=== PATIENT | female | born 1960 | race Caucasian/White ===

== ENCOUNTER 2017-04-01 16:27 | Emergency (ER) | payer BC ==
[2017-04-01 16:51] VITALS: BP 134/68
--- NOTE | 2017-04-01 17:16 | RAD ---
Indication: Left index finger injury. 3 views of left index finger demonstrates degenerative changes of the distal interphalangeal joint. No fracture is identified. IMPRESSION: Degenerative changes of the distal left interphalangeal joint.
--- NOTE | 2017-04-01 17:37 | UC ---
Rosa Vasquez Emily, scribed for Nedla Ford MD on 04/01/17 at 1724 . Upper Extremity HPI - HPI Summary HPI Summary: This patient is a 57 year old F presenting to urgent care accompanied by with a chief complaint of pain in L index finger that began last night. The patient rates the pain 7/10 in severity. Symptoms aggravated by movement of finger. Symptoms alleviated by nothing. Patient reports swelling in L index finger when she woke this morning. No paresthesia. No weakness. Pt states her mother has rheumatoid arthritis and she is concerned she has the same. Pt denies fevers, chills. no mild erythema at the joint, no red streaking. No trauma Pt is RHD. no wrist, elbow pain. Pt states has arthritis in several joints - take meloxicam. .Patient denies history of gout. Pt called pcp - unable to get appt so came here for eval. Pt is not immunocompromised. Patient's medication reviewed this visit. - History of Current Complaint Chief Complaint: UCUpperExtremity Stated Complaint: FINGER COMPLAINT Time Seen by Provider: 04/01/17 17:11 Hx Obtained From: Patient Onset/Duration: Sudden Onset, Lasting Days, Still Present Severity Initially: Moderate Severity Currently: Moderate Pain Intensity: 7 Pain Scale Used: 0-10 Numeric Location Of Pain: Is Discrete @ - index, left dip Aggravating Factor(s): Movement, Other - Movement of finger Alleviating Factor(s): Nothing Associated Signs And Symptoms: Positive: Swelling - Allergies/Home Medications Allergies/Adverse Reactions: Allergies Allergy/AdvReac Type Severity Reaction Status Date / Time No Known Allergies Allergy Verified 04/01/17 16:51 PMH/Surg Hx/FS Hx/Imm Hx - Additional Past Medical History Additional PMH: Arthritis Previously Healthy: No GI/ History: Other Other GI/ History: hepatitis C Other History Of: Hepatitis C - Surgical History Surgical History: Yes Surgery Procedure, Year, and Place: RIGHT TOTAL HIP OCTOBER 2012; BREAST IMPLANT;BIOPSIES BREAST AND CERVIX, CERVICAL FUSION. 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 Negative wrist pain Neurological: Other - Negative numbness/tingling in finger All Other Systems Reviewed And Are Negative: Yes Physical Exam Triage Information Reviewed: Yes Appearance: Well-Appearing, No Pain Distress, Well-Nourished Vital Signs: Initial Vital Signs Temp 98.2 F 04/01/17 16:48 Pulse 73 04/01/17 16:48 Resp 12 04/01/17 16:48 BP 134/68 04/01/17 16:48 Pulse Ox 98 04/01/17 16:48 Vital Signs Reviewed: Yes Eyes: Positive: Conjunctiva Clear ENT: Positive: Hearing grossly normal Neck: Positive: Supple Respiratory: Positive: No respiratory distress, No accessory muscle use Cardiovascular: Positive: Other: - 2+ radial 2+ ulnar CBT < 2 sec Musculoskeletal: Positive: Other: - left dIP. Pt with mild focal edema dorsal aspect across joint. mild erythema. No warmth, No extension to cuticle or nail bed. no fluctuance. + flex/ext MCP, DIP, PIP - discomfort with full flexion DIP of index, left No pain proximal to DIP, Metacarpals, carpals + flex.ext wrist, elbow Neurological: Positive: Alert, Muscle Tone Normal, Other: - + gross sensation throughout finger Psychological Exam: Normal Psychological: Positive: Normal Response To Family Skin: Positive: Other - + erythema no warmth left index DIP dorsum Diagnostics - Radiology Finger Radiology Interpretation Completed By: Radiologist - Finger XR read by radiologist reveals degenerative changes of the distal left interphalangeal joint. ED physician has reviewed this radiology report and agrees. Upper Extremity Course/Dx - Course Course Of Treatment: Pt presents with discomfort distal DIP left index since this am. mild erythema. No warmth. no trauma. + ROM with slight discomfort. VSS. reviewed with pt - differential wide including RF, arthritis, gout. low suspicion for infection but d/w pt s/s and surveillance. will check labs. splint. pt has meloxicam. add apap. referral to rheum and pcp. return precautions discussed. PT comfortable and in agreement with plan - Differential Dx/Diagnosis Provider Diagnoses: joint swelling left index Discharge - Discharge Plan Condition: Stable Disposition: HOME Patient Education Materials: Swollen Joint (ED) Referrals: Hubert Grajeda MD [Primary Care Provider] - Brandt Oliva MD [Medical Doctor] - 1 Day Additional Instructions: - wear splint as much as possible for comfort and support - continue to take meloxicam as previously prescribed. okay to take tylenol every 6 hours as needed - You had lab work drawn today - these results may take 3-4days to come back. you may get these results at your follow-up appointment - Monitor your finger for signs of infection - reddness, red streaking, fever, chills, increased swelling. If you have concerns, it is recommended you follow0- up here, your doctor or the emergency department - you have been given a referral for a boardmarker- okay to call to schedule an appointment The documentation as recorded by the Rosa vázquez Emily accurately reflects the service I personally performed and the decisions made by me, Nelda Ford MD.
[2017-04-02 10:57] LABS: Hematocrit 39 % (35-47); Hemoglobin 13.1 g/dl (12.0-16.0); Mean Corpuscular HGB Conc 34 g/dl (31-36); Mean Corpuscular Hemoglobin 34 pg (27-31); Mean Corpuscular Volume 101 fL (80-97); Mean Platelet Volume 9 um3 (7.4-10.4); Red Blood Count 3.88 10^6/ul (4.0-5.4); Red Cell Distribution Width 13 % (10.5-15); White Blood Count 6.1 10^3/ul (3.5-10.8)
[2017-04-02 11:02] LABS: C Reactive Protein 13.97 mg/L (< 5.00); Uric Acid 5.3 mg/dL (2.3-6.6)
[2017-04-02 11:50] LABS: Erythrocyte Sed Rate 12 mm/Hr (0-30)
--- NOTE | 2017-04-02 15:53 | UC ---
Progress - Progress Note Progress Note: NO ACUTE CHANGES.
--- NOTE | 2017-04-03 17:43 | ED ---
Progress - Progress Note Progress Note: NO ACUTE CHANGES. NO ACUTE CHANGES RF Course/Dx - Course Course Of Treatment: Pt presents with discomfort distal DIP left index since this am. mild erythema. No warmth. no trauma. + ROM with slight discomfort. VSS. reviewed with pt - differential wide including RF, arthritis, gout. low suspicion for infection but d/w pt s/s and surveillance. will check labs. splint. pt has meloxicam. add apap. referral to rheum and pcp. return precautions discussed. PT comfortable and in agreement with plan - Diagnoses Provider Diagnoses: Finger pain
== END 2017-04-01 17:41 | disposition home or self-care (01) ==
LOC: UCEAST 16:27
DX: M25.442 Effusion, left hand (principal)
CPT/HCPCS: 36415; 73140; 84550; 85025; 85652; 86140; 86431; 99211; G0463

== ENCOUNTER 2017-09-13 00:13 | Emergency (ER) | payer BC ==
[2017-09-13] MEDS ORDERED: Aspirin 81 mg CHEW TAB* 81 MG TAB.CHEW PO ONE (00:47)
[2017-09-13] MEDS ORDERED: Nitroglycerin TAB 0.4 MG* 0.4 MG TAB SL ONE (00:59)
[2017-09-13 01:14] LABS: ABS Basophils 0.1 10^3/ul (0-0.2); ABS Eosinophils 0.2 10^3/ul (0-0.6); ABS Lymphocytes 1.4 10^3/ul (1.0-4.8); ABS Monocytes 0.5 10^3/ul (0-0.8); ABS Neutrophils 3.7 10^3/ul (1.5-7.7); ABS Nucleated RBC 0 10^3/ul; Eosinophil % 2.7 % (0-6); Hematocrit 37 % (35-47); Hemoglobin 12.7 g/dl (12.0-16.0); Lymphocyte % 24.3 % (25-47); Mean Corpuscular HGB Conc 35 g/dl (31-36); Mean Corpuscular Hemoglobin 34 pg (27-31); Mean Corpuscular Volume 98 fL (80-97); Mean Platelet Volume 7.2 um3 (7.4-10.4); Nucleated Red Blood Cells % 0.1; Platelet Count 144 10^3/ul (150-450); Red Blood Count 3.75 10^6/ul (4.0-5.4); Red Cell Distribution Width 13 % (10.5-15); White Blood Count 5.8 10^3/ul (3.5-10.8)
--- OUTSIDE RECORDS SUMMARY | 2017-09-13 01:14 | XMS REPORT ---
:1960 External Reference #:[id number] Author Organization [facility] Address [address] [address] Phone [phone] Care Team Providers Name Role Phone Hubert Grajeda MD Primary Care Physician Unavailable Payers Type Date Identification Numbers Payment Provider Subscriber Commercial Effective: Policy Number: [employer] Arnulfo Busby 2012 [id number] PayID: [id number] [address] [address] [place] [address] Problems Date Description Provider Status Onset: 08/01/2016 Iliotibial band friction syndrome Reagan Goldsmith M.D. Active Onset: 08/01/2016 Trochanteric bursitis Reagan Goldsmith M.D. Active Onset: 07/14/2013 Carpal tunnel syndrome Cesar Carrillo M.D. 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 twice a day for 3 days, then as needed for pain from gout attack for no more than 4 days Voltaren 07/05/ Active Gel 1% 200uni apply 2 M19.042 2017 ts grams Pj, twice M.D. daily as needed for pain to the hands Ambien / Active Tablets 10mg 14tabs 1 po Unknown 0000 tablet at bedtime prn Valacyclovir HCL / Active Tablets 500mg 1 by Unknown 0000 mouth every day x 5 days Aspirin / Active Tablets DR 81mg 1 by Unknown 0000 mouth every day Myrbetriq / Active Tablets ER 50mg 1 by Unknown 0000 24HR mouth every day Oxycodone HCL 08/01/ Hx Capsules 5mg 30caps one to Reagan 2016 - two Rupal, 09/16/ tablets M.D. 2016 every 6 hours as needed for pain Motrin 11/11/ Hx Tablet 600mg 90tabs Take 1 Dirk 2012 - Tablet Rosalio, 07/14/ By Mouth M.D. 2013 4 Times A Day as Needed For Right Hip And Knee Pain Ibuprofen 09/10/ Hx Tablets 600mg 90tabs 1 po qid Dirk 2012 - prn pain Rosalio, 04/06/ right M.D. 2013 hip and knee Meloxicam / Hx Tablets 15mg 30tabs 1 by Reagan 0000 - mouth Rupal, 07/05/ every M.D. 2017 day Vesicare / Hx Tablets 10mg 90tabs 1 po qd Unknown 0000 - 2017 Cyclobenzaprine / Hx Tablets 5mg 30tabs take one Unknown HCL 0000 - at 04/06/ bedtime 2013 as needed Climara Pro / Hx Patches 0.045-0.01 Unknown 0000 - Weekly 5mg/Day 2013 Hydrocodone/Aceta / Hx Tablets 5-325mg 60tabs 1-2 po Unknown minophen 0000 - qid prn 04/06/ pain 2014 Lidocaine / Hx Patches 5% apply Unknown 0000 - patch up to 12 2017 hours once a day. Gabapentin / Hx Capsules 300mg 1 by Unknown 0000 - mouth three 2018 times a day, 2 at hs prn Vital Signs Date Vital Result Comment 08/21/2017 Height 80 inches 6'8" Heart Rate 75 /min BP Systolic Sitting 123 mmHg BP Diastolic Sitting 76 mmHg Respiratory Rate 14 /min Pain Level 7 07/05/2017 Height 80 inches 6'8" Weight 231.50 lb Heart Rate 73 /min BP Systolic Sitting 120 mmHg BP Diastolic Sitting 78 mmHg Pain Level 5 O2 % BldC Oximetry 97 % BMI (Body Mass Index) 25.4 kg/m2 10/10/2016 Height 70 inches 5'10" Weight 235.00 lb BP Systolic 117 mmHg BP Diastolic 80 mmHg Respiratory Rate 18 /min Body Temperature 97.7 F BMI (Body Mass Index) 33.7 kg/m2 08/01/2016 Height 70 inches 5'10" Weight 235.00 lb Heart Rate 59 /min BP Systolic Sitting 116 mmHg BP Diastolic Sitting 63 mmHg Respiratory Rate 14 /min Body Temperature 98.1 F Pain Level 6 BMI (Body Mass Index) 33.7 kg/m2 06/01/2014 Height 70 inches 5'10" Weight 250.00 lb Heart Rate 78 /min BMI (Body Mass Index) 35.9 kg/m2 04/07/2014 Height 70 inches 5'10" Heart Rate 77 /min BP Systolic 130 mmHg BP Diastolic 80 mmHg 07/14/2013 Height 70 inches 5'10" Weight 250.00 lb BP Systolic 132 mmHg BP Diastolic 82 mmHg Pain Level 4 numbness right arm BMI (Body Mass Index) 35.9 kg/m2 04/08/2013 Height 70 inches 5'10" Weight 230.00 lb Heart Rate 78 /min BP Systolic 109 mmHg BP Diastolic 71 mmHg BMI (Body Mass Index) 33.0 kg/m2 Results Test Date Test Result H/L Range Note Laboratory test finding 07/05/2017 C Reactive Protein 15.95 mg/L High &lt ; 5.00 1 Iron & Iron Binding 07/05/2017 Iron 147 g/dL 50-212 Capacity Unsaturated Iron Binding 239 g/dL Total Iron Binding Capacity 386 g/dL 250-450 % Iron Saturation 38 % 15-55 Laboratory test finding 07/05/2017 Ferritin 351.2 ng/mL High 11-307 Hla B27 07/05/2017 Hla B27 Negative 2 Hla B27 Interp See Comment 3 1 Acute inflammation: >10.00 2 REFERENCE VALUE Not Applicable 3 RESULT: HLA-B27 antigen was not detected. ADDITIONAL INFORMATION Method: Flow Cytometry Performing Laboratory CLIA# [id number] Test Performed by: [address] [address] Procedures Date CPT Code Description Status 07/21/2012 94259 Rad Exam; Foot Comp Completed Encounters Type Date Location Provider CPT E/M Dx Office Visit 07/05/2017 [facility] Brandt [place], [address] M19.042 12:00p Of Rob Bashir R79.82 R94.5 M16.9 Office Visit 11/01/2016 8:00a [facility] [place] [address] D22.5 D22.39 L91.8 D23.71 D23.72 L82.1 Office Visit 10/10/2016 11:30a [facility] Golds[facility] 46533 M70.62 C.Sherry Bashir M70.61 Office Visit 08/01/2016 1:30p [facility] 53218 M70.62 C.Sherry Bashir M76.32 Office Visit 06/01/2014 2:30p [facility] 16117 724.3 Elida Bashir Office Visit 04/07/2014 1:00p [facility] 76421 715.16 CEbenezer Bashir Office Visit 07/14/2013 2:40p [facility] Cesar Carrillo, [address]70 354.0 Of Rob Bashir Office Visit 04/08/2013 9:15a [facility] H[facility]to Santamaria M.D. 79704 718.05 C.Sherry 726.5 Office Visit 09/10/2012 3:15p [facility] Humberto Santamaria M.D. 25326 715.95 C.M.AGuy Office Visit 07/21/2012 8:45a [facility] Farrukh Anders 93649 735.2 C.Sherry Bashir 715.97 Plan of Care Future Appointment(s):09/24/2017 4:00 pm - Brandt Oliva M.D. at [facility]08/21/2017 - Brandt Oliva M.D.R79.82 Elevated C-reactive protein (CRP)R94.5 Abnormal results of liver function lhwnfhhW12.042 Primary osteoarthritis, left handM06.4 Inflammatory mectxqdgshnxrqhS76.572 Pain in left ankle and joints of left footNew Medication:Colchicine 0.6 mgFollow up:Follow up in 3 to 4 weeks or sooner if needed
[2017-09-13 01:35] LABS: EGFR Non-African American 61.1 (>60)
[2017-09-13] MEDS ORDERED: ALPRAZolam TAB* 0.25 MG PO ONE (02:03)
[2017-09-13 03:32] VITALS: BP 113/59
--- NOTE | 2017-09-13 04:20 | ED ---
Kyle Vasquez Angela, scribed for Jayy Brooks MD on 09/13/17 at 0055 . HPI Chest Pain - HPI Summary HPI Summary: This pt is a 57 y/[facility] the last couple of days. Pt reports she has had tightness on the left side of her chest with pinpoint tenderness on the mid sternum. Today, pt states pt began to feel "panicky" and jittery at approximately 22:00, and felt like she couldn't take a deep breath. Pt notes her chest pain is pleuritic. Her pain is aggravated with deep breaths. She additionally states lightheadedness, jittery, pain and tingling on tip of her toes. Pt reports that for the past few night she has been waking up from sleep with a throbbing headache located in the occipital area. 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 She is scheduled to see Dr. Meehan on September 19. Pt reports increased stress due to recent diagnosis of hemochromatosis. Pt takes Ambien, baby aspirin. - History of Current Complaint Chief Complaint: EDChestPainROMI Time Seen by Provider: 09/13/17 00:41 Hx Obtained From: Patient Onset/Duration: Started Days Ago, Still Present Timing: Lasting Days Current Severity: Severe Pain Intensity: 10 Pain Scale Used: 0-10 Numeric Chest Pain Location: Left Anterior Chest Pain Radiates: No Character: Tightness Aggravating Factor(s): Deep Breaths Alleviating Factor(s): Nothing Associated Signs and Symptoms: Positive: Chest Pain, Headaches, Lightheadedness , Other: - POS: jittery - Allergy/Home Medications Allergies/Adverse Reactions: Allergies Allergy/AdvReac Type Severity Reaction Status Date / Time No Known Allergies Allergy Verified 09/13/17 00:29 PMH/Surg Hx/FS Hx/Imm Hx Endocrine/Hematology History: Denies: Hx Diabetes, Hx Systemic Lupus Erythematosus Cardiovascular History: Reports: Hx Hypertension - RESOLVED Denies: Hx Congestive Heart Failure, Hx Pacemaker/ICD Respiratory History: Reports: Hx Asthma History: Denies: Hx Dialysis, Hx Renal Disease Musculoskeletal History: Reports: Hx Arthritis - osteoarthritis Denies: Hx Rheumatoid Arthritis Sensory History: Denies: Hx Hearing Aid Psychiatric History: Reports: Other Psychiatric Issues/Disorders - hx of iv drug addiction; clean since 2007 Denies: Hx Panic Disorder - Cancer History Hx Chemotherapy: No Hx Radiation Therapy: No - Surgical History Surgery Procedure, Year, and Place: RIGHT TOTAL HIP OCTOBER 2012; BREAST IMPLANT;BIOPSIES BREAST AND CERVIX, CERVICAL FUSION. - Immunization History Date of Tetanus Vaccine: utd Date of Influenza Vaccine: utd Infectious Disease History: Yes Infectious Disease History: Reports: Hx Hepatitis - hx, Hx of Known/Suspected MRSA - 2004 tailbone Denies: Hx Clostridium Difficile, Hx Human Immunodeficiency Virus (HIV), Hx Shingles, Hx Tuberculosis, Hx Known/Suspected VRE, Hx Known/Suspected VRSA, History Other Infectious Disease, Traveled Outside the [place] in Last 30 Days - Family History Family History: Rheumatoid Arthritis - Social History Alcohol Use: Occasionally Substance Use Type: Reports: None Substance Use Comment - Amount & Last Used: 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; clean since 2004) Smoking Status (MU): Never Smoked Tobacco Have You Smoked in the Last Year: No Review of Systems Negative: Fever Positive: Chest Pain Musculoskeletal: Other - pain at tips of toes Neurological: Other - POS: lightheadedness, jittery Positive: Headache, Paresthesia - on tips of toes All Other Systems Reviewed And Are Negative: Yes Physical Exam - Summary Physical Exam Summary: Appearance: Well-appearing, no distress, Well-nourished Skin: Warm, color reflects adequate perfusion Head: Normal Head/Face inspection Eyes: Conjunctiva clear ENT: Normal inspection Neck: Supple, no nodes, no JVD. Respiratory: Lungs clear, Normal breath sounds, no respiratory distress Cardio: RRR, No murmur, pulses normal, brisk capillary refill Abdomen: soft, nontender, no guarding, no rebound Bowel sounds: present Musculoskeletal: Strength Intact/ ROM intact. No calf tenderness. No edema. Neuro: Alert, muscle tone normal, facial symmetry, speech normal, sensory/motor intact Psychological: Normal Triage Information Reviewed: Yes Vital Signs On Initial Exam: Initial Vitals Temp Pulse Resp BP Pulse Ox 97.9 F 81 20 151/77 100 09/13/17 00:16 09/13/17 00:16 09/13/17 00:16 09/13/17 00:16 09/13/17 00:16 Vital Signs Reviewed: Yes Diagnostics - Vital Signs Vital Signs Temp Pulse Resp BP Pulse Ox 09/13/17 00:16 97.9 F 81 20 151/77 100 - Laboratory Lab Results: Lab Results 09/13/17 09/13/17 09/13/17 Range/Units 01:05 01:05 01:05 WBC 5.8 (3.5-10.8) 10^3/ul RBC 3.75 L (4.0-5.4) 10^6/ul Hgb 12.7 (12.0-16.0) g/dl Hct 37 (35-47) % MCV 98 H (80-97) fL MCH 34 H (27-31) pg MCHC 35 (31-36) g/dl RDW 13 (10.5-15) % Plt Count 144 L (150-450) 10^3/ul MPV 7.2 L (7.4-10.4) um3 Neut % (Auto) 63.5 (38-83) % Lymph % (Auto) 24.3 L (25-47) % [place] % (Auto) 8.0 H (0-7) % Eos % (Auto) 2.7 (0-6) % Baso % (Auto) 1.5 (0-2) % Absolute Neuts (auto) 3.7 (1.5-7.7) 10^3/ul Absolute Lymphs (auto) 1.4 (1.0-4.8) 10^3/ul Absolute Monos (auto) 0.5 (0-0.8) 10^3/ul Absolute Eos (auto) 0.2 (0-0.6) 10^3/ul Absolute Basos (auto) 0.1 (0-0.2) 10^3/ul Absolute Nucleated RBC 0 10^3/ul Nucleated RBC % 0.1 D-Dimer, Quantitative < 200 (Less Than 230) ng/mL Sodium (139-145) mmol/L Potassium (3.5-5.0) mmol/L Chloride (101-111) mmol/L Carbon Dioxide (22-32) mmol/L Anion Gap (2-11) mmol/L BUN (6-24) mg/dL Creatinine (0.51-0.95) mg/dL Est GFR ( Amer) (>60) Est GFR (Non-Af Amer) (>60) BUN/Creatinine Ratio (8-20) Glucose (70-100) mg/dL Calcium (8.6-10.3) mg/dL Magnesium (1.9-2.7) mg/dL Iron (50-212) ug/dL Total Bilirubin (0.2-1.0) mg/dL AST (13-39) U/L ALT (7-52) U/L Alkaline Phosphatase (34-104) U/L Troponin I (<0.04) ng/mL B-Natriuretic Peptide 37 ( - 100) pg/mL Total Protein (6.4-8.9) g/dL Albumin (3.2-5.2) g/dL Globulin (2-4) g/dL Albumin/Globulin Ratio (1-3) 09/13/ Range/Units 01:05 WBC (3.5-10.8) 10^3/ul RBC (4.0-5.4) 10^6/ul Hgb (12.0-16.0) g/dl Hct (35-47) % MCV (80-97) fL MCH (27-31) pg MCHC (31-36) g/dl RDW (10.5-15) % Plt Count (150-450) 10^3/ul MPV (7.4-10.4) um3 Neut % (Auto) (38-83) % Lymph % (Auto) (25-47) % [place] % (Auto) (0-7) % Eos % (Auto) (0-6) % Baso % (Auto) (0-2) % Absolute Neuts (auto) (1.5-7.7) 10^3/ul Absolute Lymphs (auto) (1.0-4.8) 10^3/ul Absolute Monos (auto) (0-0.8) 10^3/ul Absolute Eos (auto) (0-0.6) 10^3/ul Absolute Basos (auto) (0-0.2) 10^3/ul Absolute Nucleated RBC 10^3/ul Nucleated RBC % D-Dimer, Quantitative (Less Than 230) ng/mL Sodium 139 (139-145) mmol/L Potassium 4.0 (3.5-5.0) mmol/L Chloride 107 (101-111) mmol/L Carbon Dioxide 25 (22-32) mmol/L Anion Gap 7 (2-11) mmol/L BUN 15 (6-24) mg/dL Creatinine 0.95 (0.51-0.95) mg/dL Est GFR ( Amer) 78.5 (>60) Est GFR (Non-Af Amer) 61.1 (>60) BUN/Creatinine Ratio 15.8 (8-20) Glucose 111 H (70-100) mg/dL Calcium 9.5 (8.6-10.3) mg/dL Magnesium 1.9 (1.9-2.7) mg/dL Iron 98 (50-212) ug/dL Total Bilirubin 0.80 (0.2-1.0) mg/dL AST 72 H (13-39) U/L ALT 56 H (7-52) U/L Alkaline Phosphatase 67 (34-104) U/L Troponin I 0.01 (<0.04) ng/mL B-Natriuretic Peptide ( - 100) pg/mL Total Protein 6.5 (6.4-8.9) g/dL Albumin 4.2 (3.2-5.2) g/dL Globulin 2.3 (2-4) g/dL Albumin/Globulin Ratio 1.8 (1-3) Result Diagrams: 09/13/17 01:05 09/13/17 01:05 Lab Statement: Any lab studies that have been ordered have been reviewed, and results considered in the medical decision making process. - Radiology Chest XR Xray Interpretation: No Acute Changes - Chest XR shows no acute process. Radiology Interpretation Completed By: ED Physician - EKG 00:15 Cardiac Rate: NL EKG Rhythm: Sinus Rhythm - at 80 bpm EKG Interpretation: Intervals are normal. [place] is normal. No ST or T wave changes. Re-Evaluation - Re-Evaluation First Eval Re-Evaluation Time: 01:15 Second Eval Re-Evaluation Time: 03:21 Change: Improved Comment: Pt resting comfortably in bed. pt chest pain and "jitters" resolved. pt symptoms atypical with component fo stress/anxiety. Chest Pain Course/Dx - Course Assessment/Plan: Pt HEART score - 1; pt with atypical symptoms exacerbated by stress and anxiety regarding recent diagnosis. plan for symptomatic tx with follow up as scheduled. - Chest Pain Differential Diagnosis/HQI/PQRI: Acute DC, ACS, Angina, GI Disease, Lower Respiratory Infection, Pulmonary Embolism - Diagnoses Provider Diagnoses: Atypical chest pain, Anxiety Discharge - Sign-Out/Discharge Documenting (check all that apply): Discharge - discharge to home - Discharge Plan Condition: Improved Disposition: HOME Prescriptions: hydrOXYzine HCL TAB* [Atarax 25 MG TAB*] 25 mg PO TID PRN #6 tab PRN Reason: Anxiety Patient Education Materials: Noncardiac Chest Pain (ED), Anxiety (ED) Referrals: Hubert Grajeda MD [Primary Care Provider] - - Billing Disposition and Condition Condition: IMPROVED Disposition: HOME The documentation as recorded by the Kyle vázquez Angela accurately reflects the service I personally performed and the decisions made by , Jayy Brooks MD.
--- NOTE | 2017-09-13 07:47 | RAD ---
HISTORY: Chest pain COMPARISONS: July 19, 2015 VIEWS: 1: frontal portable view of the chest at 1:00 AM FINDINGS: LINES AND TUBES: None. CARDIOMEDIASTINAL SILHOUETTE: The cardiomediastinal silhouette is normal for portable technique. PLEURA: The costophrenic angles are sharp. No pleural abnormalities are noted. LUNG PARENCHYMA: The lungs are clear. ABDOMEN: The upper abdomen is clear. There is no subphrenic gas. BONES AND SOFT TISSUES: No bone or soft tissue abnormalities are noted. IMPRESSION: NO ACTIVE CARDIOPULMONARY DISEASE.
== END 2017-09-13 03:50 | disposition home or self-care (01) ==
LOC: ED 00:13
DX: R07.89 Other chest pain (principal); R51 Headache; R42 Dizziness and giddiness; F41.9 Anxiety disorder, unspecified
CPT/HCPCS: 36415; 71045; 80053; 83540; 83735; 83880; 84484; 85025; 85379; 93005; 99283; A9270-GY

== ENCOUNTER 2017-11-17 22:42 | Emergency (ER) | payer BC ==
[2017-11-17] MEDS ORDERED: Lidocaine 2% 10 ML* VIAL INJ ONE (22:46)
[2017-11-17] MEDS ORDERED: Lidocaine 1%* 5 ML VIAL ONE (22:50)
[2017-11-17] MEDS ORDERED: ALPRAZolam TAB* 0.5 MG PO ONE (22:58)
[2017-11-17] MEDS ORDERED: Lidocaine 1%* 5 ML VIAL INJ ONE (23:00)
[2017-11-18] MEDS ORDERED: oxyCODONE/Acetamin 5/325 MG* TAB PO ONE (00:20)
[2017-11-18 01:33] VITALS: BP 142/80
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
== END 2017-11-18 01:29 | disposition home or self-care (01) ==
LOC: ED 22:42
DX: S01.21XA Laceration without foreign body of nose, initial encounter (principal); S01.81XA Laceration without foreign body of other part of head, initial encounter; S11.91XA Laceration without foreign body of unspecified part of neck, initial encounter; S01.511A Laceration without foreign body of lip, initial encounter; X99.8XXA Assault by other sharp object, initial encounter; Y93.9 Activity, unspecified; Y92.9 Unspecified place or not applicable; Y07.01 Husband, perpetrator of maltreatment and neglect; J45.909 Unspecified asthma, uncomplicated; Z96.649 Presence of unspecified artificial hip joint; Z82.61 Family history of arthritis
CPT/HCPCS: 12014; 99282; A9270-GY

== ENCOUNTER 2018-02-03 11:09 | Day surgery (SDC) | payer BC ==
[~2018-02-03 11:09] MED LIST: Buffered Lidocaine 0.9% SYRIN* 5 ML/SYR SYRINGE INTRADERM ONE; Famotidine IV* 10 MG/ML 2 ML (20 mg) IV ONE
[2018-02-03] MEDS ORDERED: Famotidine IV* 10 MG/ML 2 ML (20 mg) ONE (11:23)
[2018-02-03] MEDS ORDERED: ceFAZolin 2 GM PREMIX (*) 2 GM/50 ML BAG IVPB ONE (11:23)
[2018-02-03] MEDS ORDERED: ceFAZolin 1 GM in Dextrose (*) 0 GM/0 ML BAG IVPB ONE (11:23)
[2018-02-03] MEDS ORDERED: Ketorolac INJ* 30 MG/ML 1 ML VIAL ONE (13:27)
[2018-02-03] MEDS ORDERED: fentaNYL* 50 MCG/ML 2 ML VIAL (100 MCG VIAL) ONE (13:27)
[2018-02-03] MEDS ORDERED: Midazolam* 1 MG/ML 5 ML VIAL (5 MG) ONE (13:27)
[2018-02-03] MEDS ORDERED: KETAMINE HCL* 50 MG/ML 10 ML VIAL ONE (13:27)
[2018-02-03] MEDS ORDERED: Propofol* 10 MG/ML 20 ML BTL IV PUSH ONE ×2 (13:27→15:08)
[2018-02-03] MEDS ORDERED: Lidocaine 2% PF * 5 ML VIAL ONE (13:27)
[2018-02-03] MEDS ORDERED: Dexamethasone IV* 4 MG/ML 1 ML (4 MG) ONE (13:27)
[2018-02-03] MEDS ORDERED: Ondansetron INJ* 2 MG/ML VIAL ONE (13:27)
[2018-02-03] MEDS ORDERED: Lidocaine 2% PF* 10 ML AMP ONE (14:25)
[2018-02-03] MEDS ORDERED: Ropivacaine (OR use only) 2 MG/ML 10 ML ONE (14:25)
[2018-02-03] MEDS ORDERED: oxyCODONE/Acetamin 5/325 MG* TAB PO PRN (14:36)
[2018-02-03] MEDS ORDERED: fentaNYL* 50 MCG/ML 2 ML VIAL (100 MCG VIAL) IV PRN (14:36)
[2018-02-03] MEDS ORDERED: Ondansetron INJ* 2 MG/ML VIAL IV PRN (14:36)
[2018-02-03] MEDS ORDERED: Naloxone* 0.4 MG/ML 1 ML VIAL IV PRN (14:36)
[2018-02-03] MEDS ORDERED: Midazolam* 1 MG/ML 2 ML VIAL (2 MG) ONE (14:43)
[2018-02-03 16:54] VITALS: BP 117/72
--- NOTE | 2018-02-04 02:37 | OP ---
DATE OF OPERATION: 02/03/18 - [facility] DATE OF : 64 SURGEON: Farrukh Anders MD GRIP WRAPPER: Sara Tanner PA-C PRE-OP DIAGNOSIS: Right end-stage hallux rigidus. POST-OP DIAGNOSIS: Right end-stage hallux rigidus. OPERATIVE PROCEDURE: Right first MTP joint fusion. DESCRIPTION OF PROCEDURE: The patient was taken to the operating room where longitudinal incision was made over the first MTP joint. Mediolateral flap was raised to allow visualization of the joint. The large dorsal osteophytes were removed with the rongeur. The eburnated bone was prepared for arthrodesis using the Arthrex reamers. We then placed the joint into a neutral position and then fixed this temporarily with a 3.0 mm oblique lag screw. Good alignment was felt to still be obtained, so we fixed it with a dorsal right- sided Arthrex first MTP joint fusion plate. Locking screws were placed distal and proximal and good alignment obtained. We then irrigated thoroughly closing with 3-0 Vicryl sutures, nylon for the skin, and a compression dressing applied. [id number]/[facility] #: [id number] [facility]
== END 2018-02-03 17:05 | disposition home or self-care (01) ==
LOC: OR 11:09
PROVIDERS: ATTEND Orthopaedic Surgery
DX: M20.21 Hallux rigidus, right foot (principal); M19.90 Unspecified osteoarthritis, unspecified site; F41.9 Anxiety disorder, unspecified; F10.21 Alcohol dependence, in remission; F15.11 Other stimulant abuse, in remission
CPT/HCPCS: C1713; J0690; J1100; J1885; J2001; J2250; J2405; J2704; J2795; J3010